=== PATIENT | male | born 1995 | race African-American/Black ===

== ENCOUNTER 2023-01-13 04:01 | Emergency (ER) | payer OTHER ==
[~2023-01-13] VITALS: Ht 180.3 cm; Wt 86.8 kg
[2023-01-13] MEDS ORDERED: IBUPROFEN 800 MG TAB PO ONE (06:30)
[2023-01-13] MEDS ORDERED: AMOX875T PO (06:30)
[2023-01-13 06:43] VITALS: BP 139/81
== END 2023-01-13 06:52 | disposition home or self-care (01) ==
LOC: M ED 06:35
DX: J02.0 Streptococcal pharyngitis (principal)

== ENCOUNTER → 2023-01-27 | Outpatient (CLI) | payer OTHER ==
[~2023-01-27] MED LIST: AMOX875T PO
[2023-01-27 10:54] LABS: BASO % 0.3 % (0.0-1.0); EOS % 0.3 % (0.0-3.0); HEMATOCRIT 46.5 % (42.0-52.0); LYMPH # 2.1 10^3/uL (1.5-5.0); LYMPH % 69.8 % (24.0-44.0); MEAN CORPUSCULAR HEMOGLOBIN 27.6 pg (27.0-33.0); MEAN CORPUSCULAR HGB CONC 32.3 g/dl (32.0-36.5); MEAN CORPUSCULAR VOLUME 85.6 fl (80.0-96.0); MONO # 0.2 10^3/uL (0.0-0.8); MONO % 7.4 % (2.0-8.0); NEUTROPHILS % 21.9 % (36.0-66.0); PLATELET COUNT, AUTOMATED 201 10^3/uL (150-450); RED BLOOD COUNT 5.43 10^6/uL (4.30-6.10)
[2023-01-27 11:15] LABS: NEUTROPHILS # 0.7 10^3/uL (1.5-8.5)
[2023-01-27 11:19] LABS: ALKALINE PHOSPHATASE 73 U/L (46-116); ALT/SGPT 18 U/L (7.0-40); AST/SGOT 36 U/L (<34); BILIRUBIN,TOTAL 0.3 MG/DL (0.3-1.2); BLOOD UREA NITROGEN 12 MG/DL (9-23); CALCIUM LEVEL 9.3 MG/DL (8.5-10.1); CARBON DIOXIDE LEVEL 27 MMOL/L (20-31); CHLORIDE LEVEL 100 MMOL/L (98-107); CREATININE FOR GFR 1.05 MG/DL (0.70-1.30); GLOMERULAR FILTRATION RATE > 60.0 (>60); GLUCOSE, FASTING 107 MG/DL (60-100); POTASSIUM SERUM 4.1 MMOL/L (3.5-5.1); SODIUM LEVEL 136 MMOL/L (136-145); THYROID STIMULATING HORMONE 3.665 uIU/ML (0.55-4.78); TOTAL PROTEIN 8.3 G/DL (5.7-8.2)
[2023-01-27 11:20] LABS: FREE T4 1.17 NG/DL (0.89-1.76)
[2023-01-27 11:45] LABS: HIV 1&2 SCREEN NEGATIVE (NEGATIVE)
[2023-01-27 21:05] LABS: GC DNA AMPLIFICATION NEGATIVE (NEGATIVE)
== END ==
LOC: M LAB 10:03
PROVIDERS: ATTEND Internal Medicine
DX: R30.0 Dysuria (principal); Z20.2 Contact with and (suspected) exposure to infections with a predominantly sexual mode of transmission